=== PATIENT | female | born 1965 ===

== ENCOUNTER 2023-02-09 05:41 | Day surgery (SDC) | payer OTHER ==
[~2023-02-09 05:41] MED LIST: DAILY VALUE1 EACH PO; LIPIT PO
== END 2023-02-09 14:35 | disposition home or self-care (01) ==
LOC: CIR.AMB 05:41
PROVIDERS: ATTEND Surgery
DX: K43.6 Other and unspecified ventral hernia with obstruction, without gangrene (principal); Z20.822 Contact with and (suspected) exposure to COVID-19; E78.5 Hyperlipidemia, unspecified
CPT/HCPCS: 49594; C1781